=== PATIENT | male | born 1960 | race Caucasian/White ===

== ENCOUNTER 2021-07-25 07:32 | Outpatient (CLI) | payer OTHER | END 2021-07-25 07:38 | disposition home or self-care (01) | LOC: SONOGRAMA 07:32 | PROVIDERS: ATTEND Pathology Anatomic Pathology & Clinical Pathology | DX: E04.2 Nontoxic multinodular goiter (principal) ==

== ENCOUNTER 2025-06-18 11:03 | Outpatient (CLI) | payer OTHER | END 2025-06-18 11:05 | disposition home or self-care (01) | LOC: SONOGRAMA 11:03 | PROVIDERS: ATTEND Pathology Anatomic Pathology & Clinical Pathology | DX: D34 Benign neoplasm of thyroid gland (principal); E07.89 Other specified disorders of thyroid; E04.1 Nontoxic single thyroid nodule ==